=== PATIENT | female | born 1955 | race American Indian/Alaskan Native ===

== ENCOUNTER 2016-09-02 11:49 | Emergency (ER) | payer BC, OTHER ==
[2016-09-02 12:02] VITALS: BP 141/94
--- NOTE | 2016-09-02 12:59 | Emergency Department Report ---
Minor Respiratory - HPI Chief Complaint: Upper Respiratory Infection Stated Complaint: BACK ACHE/SNEEZING/COUGHING/ Time Seen by Provider: 09/02/16 12:41 ED Review of Systems ROS: Stated complaint: BACK ACHE/SNEEZING/COUGHING/ Other details as noted in HPI Patient relates she is been sick with fever and cough for the past 6 days. Denies photophobia, neck pain, shortness of breath. Constitutional: chills, fever, malaise Eyes: denies: eye discharge, vision change ENT: congestion. denies: throat pain Respiratory: cough. denies: shortness of breath, wheezing Cardiovascular: denies: chest pain, palpitations Gastrointestinal: denies: abdominal pain, nausea, vomiting Musculoskeletal: myalgia Skin: as per HPI Neurological: headache. denies: abnormal gait, vertigo ED Past Medical Hx - Past Medical History Hx Hypertension: Yes Additional medical history: thyroid CA-2006 - Surgical History Additional Surgical History: thyroidectomy,right ovary removed - Social History Smoking Status: Unknown if ever smoked Substance Use Type: None - Medications Home Medications: Home Medications Medication Instructions Recorded Confirmed Last Taken Type Acetamin/Codeine 120-12Mg/5 ml 5 ml PO TID PRN #120 oz 09/02/16 Unknown Rx [Tylenol/Codeine] Azithromycin [Zithromax Z-PAYAM] 250 mg PO DAILY #1 09/02/16 Unknown Rx predniSONE [Deltasone] 50 mg PO QDAY #5 tab 09/02/16 Unknown Rx Minor Respiratory Exam - Exam General: Vital signs noted. No distress. Alert and acting appropriately. HEENT: No Pharyngeal Erythema, No Pharyngeal Exudates, No Moist Mucous Membranes , No Rhinorrhea, No Conjuctival Injection, No Frontal Tenderness, No Maxillary Tenderness Ear: Neither TM Bulge, Neither TM Erythema, Neither EAC Pain, Neither EAC Discharge Neck: No Adenopathy, No Supple Lungs: Yes Good Air Exchange, Yes Cough (dry), No Wheezes, No Ronchi, No Stridor , No Labored Respirations, No Retractions, No Use of Accessory Muscles, No Other Abnormal Lung Sounds Abdomen: No Tenderness, No Peritoneal Signs Skin: No Rash, No Edema Neurologic: Alert and oriented, no deficits. Musculoskeletal: Unremarkable. ED Course Vital Signs 09/02/16 11:58 Temperature 99.8 F H Pulse Rate 100 H Respiratory 20 Rate Blood Pressure 141/94 O2 Sat by Pulse 100 Oximetry Critical care attestation.: If time is entered above; I have spent that time in minutes in the direct care of this critically ill patient, excluding procedure time. ED Disposition Clinical Impression: Flu-like symptoms, URI (upper respiratory infection) Disposition: DISCHARGED TO HOME OR SELFCARE Is pt being admited?: No Does the pt Need Aspirin: No Condition: Stable Instructions: Upper Respiratory Infection in Children (ED) Prescriptions: Acetamin/Codeine 120-12Mg/5 ml [Tylenol/Codeine] 5 ml PO TID PRN #120 oz PRN Reason: Pain Azithromycin [Zithromax Z-PAYAM] 250 mg PO DAILY #1 predniSONE [Deltasone] 50 mg PO QDAY #5 tab Referrals: PRIMARY CARE, [Primary Care Provider] - 3-5 Days
--- NOTE | 2016-09-02 13:33 | XRay Report ---
AP CHEST: HISTORY: Fever AP view of the chest demonstrates a normal mediastinal and cardiac contour with clear lungs and normal bony and soft tissue structures. IMPRESSION: Unremarkable AP chest.
== END 2016-09-02 14:05 | disposition home or self-care (01) ==
LOC: ED 11:49
DX: J11.1 Influenza due to unidentified influenza virus with other respiratory manifestations (principal); J06.9 Acute upper respiratory infection, unspecified; I10 Essential (primary) hypertension
CPT/HCPCS: 71010; 99283

== ENCOUNTER 2017-12-02 18:07 | Emergency (ER) | payer SELFPAY ==
[2017-12-02] MEDS ORDERED: MOTRIN PO ONE (22:13)
--- NOTE | 2017-12-02 22:18 | Emergency Department Report ---
- General Chief Complaint: Upper Respiratory Infection Stated Complaint: FLU LIKE SYMPTOMS Time Seen by Provider: 12/02/17 22:13 Source: patient Mode of arrival: Ambulatory Limitations: No Limitations - History of Present Illness Initial Comments: 62-year-old -[place] female comes in complaining of sinus pressure, congestion, headache, runny nose 6 days. She reports dry cough started today and chills. She denies any nausea no vomiting no diarrhea. Patient reports she 's been taking Claritin without much relief. She reports her headache is located frontal in the back of her neck. She reports that the headache is dull and achy inconsistent. Patient has a past medical history of hypertension she is currently taken amlodipine, history of hypothyroidism currently taking levothyroxine 125 g daily. MD Complaint: rhinorrhea, nasal congestion, sinus pain, other (headache) -: days(s) (6) Severity scale (0 -10): 8 Quality: dull, aching Consistency: constant Improves With: nothing Worsens With: nothing Associated Symptoms: chills, headache, rhinorrhea, nasal congestion, cough (dry cough started today) Treatments Prior to Arrival: Acetaminophen, other (Claritin) - Related Data Previous Rx's Medication Instructions Recorded Last Taken Type Acetamin/Codeine 120-12Mg/5 ml 5 ml PO TID PRN #120 oz 09/02/16 Unknown Rx [Tylenol/Codeine] Azithromycin [Zithromax Z-PAYAM] 250 mg PO DAILY #1 09/02/16 Unknown Rx predniSONE [Deltasone] 50 mg PO QDAY #5 tab 09/02/16 Unknown Rx Dexchlorpheniram/Phenylephrine 1 each PO Q6H #20 tab 12/02/17 Unknown Rx [Rymed Tablet] Ibuprofen [Motrin 600 MG tab] 600 mg PO Q8H PRN #15 tablet 12/02/17 Unknown Rx Sulfamethoxazole/Trimethoprim 1 each PO BID #20 tablet 12/02/17 Unknown Rx [Bactrim DS TAB] Allergies Allergy/AdvReac Type Severity Reaction Status Date / Time Penicillins Allergy Nausea Verified 12/02/17 18:11 ED Review of Systems ROS: Stated complaint: FLU LIKE SYMPTOMS Other details as noted in HPI Constitutional: chills Eyes: denies: eye pain, eye discharge, vision change ENT: congestion (nasal,), other (rhinorrhea) Respiratory: cough (dry cough started today) Cardiovascular: denies: chest pain, palpitations Endocrine: no symptoms reported Gastrointestinal: nausea Genitourinary: denies: urgency, dysuria, discharge Musculoskeletal: denies: back pain, joint swelling, arthralgia Skin: denies: rash, lesions Neurological: headache (frontal constant dull and achy) Psychiatric: denies: anxiety, depression Hematological/Lymphatic: denies: easy bleeding, easy bruising ED Past Medical Hx - Past Medical History Hx Hypertension: Yes Additional medical history: thyroid CA-2006 - Surgical History Additional Surgical History: thyroidectomy,right ovary removed - Social History Smoking Status: Never Smoker Substance Use Type: None - Medications Home Medications: Home Medications Medication Instructions Recorded Confirmed Last Taken Type Acetamin/Codeine 120-12Mg/5 ml 5 ml PO TID PRN #120 oz 09/02/16 Unknown Rx [Tylenol/Codeine] Azithromycin [Zithromax Z-PAYAM] 250 mg PO DAILY #1 09/02/16 Unknown Rx predniSONE [Deltasone] 50 mg PO QDAY #5 tab 09/02/16 Unknown Rx Dexchlorpheniram/Phenylephrine 1 each PO Q6H #20 tab 12/02/17 Unknown Rx [Rymed Tablet] Ibuprofen [Motrin 600 MG tab] 600 mg PO Q8H PRN #15 tablet 12/02/17 Unknown Rx Sulfamethoxazole/Trimethoprim 1 each PO BID #20 tablet 12/02/17 Unknown Rx [Bactrim DS TAB] ED Physical Exam - General Limitations: No Limitations General appearance: alert, in no apparent distress - Head Head exam: Present: atraumatic, normocephalic, other (maxillary's sinus tenderness, and frontal tenderness) - ENT ENT exam: Present: mucous membranes moist, other (nasal turbinate erythematous edematous) - Neck Neck exam: Present: normal inspection, tenderness (posterior lateral), full ROM. Absent: lymphadenopathy - Respiratory Respiratory exam: Present: normal lung sounds bilaterally. Absent: respiratory distress - Cardiovascular Cardiovascular Exam: Present: regular rate, normal rhythm. Absent: systolic murmur, diastolic murmur, rubs, gallop - GI/Abdominal GI/Abdominal exam: Present: soft, normal bowel sounds - Extremities Exam Extremities exam: Present: normal inspection - Back Exam Back exam: Present: normal inspection - Neurological Exam Neurological exam: Present: alert, oriented X3 - Psychiatric Psychiatric exam: Present: normal affect, normal mood - Skin Skin exam: Present: warm, dry, intact, normal color. Absent: rash ED Course Vital Signs 12/02/17 18:11 Temperature 99.2 F Pulse Rate 82 Respiratory 16 Rate Blood Pressure 174/100 O2 Sat by Pulse 99 Oximetry ED Medical Decision Making - Medical Decision Making Patient's been evaluated with this provider fast track. I discussed the patient sounds like sinusitis. Discussed the patient will place her on antibiotics and antihistamine with decongestant and pain medication. Discuss with patient her elevated blood pressure. Patient reports that her blood pressure has been doing quite well running 118/70. I discussed the patient she will need to continue with her blood pressure and monitoring while taking medication. Patient verbalized understanding Critical care attestation.: If time is entered above; I have spent that time in minutes in the direct care of this critically ill patient, excluding procedure time. ED Disposition Clinical Impression: Sinusitis chronic, frontal Disposition: DC-01 TO HOME OR SELFCARE Is pt being admited?: No Does the pt Need Aspirin: No Condition: Stable Instructions: Sinusitis (ED) Additional Instructions: Take medication as prescribed. Please be sure to continue with her blood pressure medication. If symptoms persist or gets worse please follow-up with her primary care provider. Prescriptions: Dexchlorpheniram/Phenylephrine [Rymed Tablet] 1 each PO Q6H #20 tab Ibuprofen [Motrin 600 MG tab] 600 mg PO Q8H PRN #15 tablet PRN Reason: Pain Sulfamethoxazole/Trimethoprim [Bactrim DS TAB] 1 each PO BID #20 tablet Referrals: PRIMARY CARE, [Primary Care Provider] - 3-5 Days Forms: Work/School Release Form(ED)
[2017-12-02 22:40] VITALS: BP 151/94
== END 2017-12-02 22:38 | disposition home or self-care (01) ==
LOC: ED 18:07
DX: J32.9 Chronic sinusitis, unspecified (principal); I10 Essential (primary) hypertension
CPT/HCPCS: 99282

== ENCOUNTER 2019-03-27 07:09 | Emergency (ER) | payer OTHER ==
--- NOTE | 2019-03-27 08:00 | Emergency Department Report ---
HPI - General Chief Complaint: Syncope Time Seen by Provider: 03/27/19 07:40 - HPI HPI: 63-year-old -[place] female presents to the emergency department from home with complaint of a headache and neck pain after falling in her kitchen just prior to arrival. Patient says that she slipped and hit the right side of her head on the corner of the wall. She then fell to the floor and says that she "twisted my neck." Patient says that she may have blacked out but "I forced myself to wake up." She has a history of some hypothyroidism status post thyroidectomy from thyroid cancer, as well as a history of hypertension. She did not take anything for her symptoms prior to arrival. She denies any back pain, chest pain, abdominal pain, pelvic or extremity pain. ED Past Medical Hx - Past Medical History Previous Medical History?: Yes Hx Hypertension: Yes Additional medical history: thyroid CA-2005 - Surgical History Past Surgical History?: Yes Additional Surgical History: thyroidectomy,right ovary removed - Social History Smoking Status: Never Smoker Substance Use Type: None - Medications Home Medications: Home Medications Medication Instructions Recorded Confirmed Last Taken Type Atorvastatin (Nf) [Lipitor (Nf)] 10 mg PO QHS 03/27/19 03/27/19 03/26/19 History Cholecalciferol (Vitamin D3) 50,000 unit PO QWEEK 03/27/19 03/27/19 03/23/19 History [Vitamin D3 50,000UNIT CAP] Levothyroxine [Synthroid] 125 mcg PO QAM 03/27/19 03/27/19 03/26/19 History amLODIPine [Norvasc] 5 mg PO DAILY 03/27/19 03/27/19 03/26/19 History amLODIPine [Norvasc] 10 mg PO DAILY 03/27/19 03/27/19 03/26/19 History ED Review of Systems ROS: Stated complaint: FALL HEAD LAC Other details as noted in HPI Comment: All other systems reviewed and negative Constitutional: denies: chills, fever Eyes: denies: eye pain, vision change ENT: denies: ear pain, throat pain Respiratory: denies: cough, shortness of breath Cardiovascular: syncope. denies: chest pain Gastrointestinal: denies: abdominal pain, vomiting Genitourinary: denies: dysuria, discharge Musculoskeletal: other (neck pain). denies: back pain Skin: denies: rash, lesions Neurological: headache. denies: numbness, paresthesias Physical Exam - Physical Exam Vital Signs: Vital Signs 03/27/19 03/27/19 07:34 07:56 Temperature 98.1 F Pulse Rate 91 H 94 H Respiratory 16 16 Rate Blood Pressure 152/95 Blood Pressure 159/93 [Left] O2 Sat by Pulse 100 100 Oximetry Physical Exam: GENERAL: The patient is well-developed well-nourished. HENT: Normocephalic. There is a small non-expanding hematoma to the right superior forehead and scalp. Patient has moist mucous membranes. EYES: Extraocular motions are intact. Pupils equal reactive to light bilaterally. No nystagmus. NECK: Supple. Trachea is midline. There is both midline and bilateral paraspinal tenderness to palpation but no step-off or deformity. CHEST/LUNGS: Clear to auscultation. There is no respiratory distress noted. HEART/CARDIOVASCULAR: Regular. There is no tachycardia. There is no murmur. ABDOMEN: Abdomen is soft, nontender. Patient has normal bowel sounds. There is no abdominal distention. SKIN: Skin is warm and dry. NEURO: The patient is awake, alert, and oriented. The patient is cooperative. The patient has no focal neurologic deficits. Normal speech. Cranial nerves II through XII grossly intact. MUSCULOSKELETAL: There is no tenderness or deformity. There is no limitation range of motion. There is no evidence of acute injury. Muscle strength 5 out of 5 upper and lower extremities bilaterally. ED Course Vital Signs 03/27/19 03/27/19 07:34 07:56 Temperature 98.1 F Pulse Rate 91 H 94 H Respiratory 16 16 Rate Blood Pressure 152/95 Blood Pressure 159/93 [Left] O2 Sat by Pulse 100 100 Oximetry ED Medical Decision Making - Lab Data Result diagrams: 03/27/19 07:53 03/27/19 07:53 - EKG Data -: EKG Interpreted by Me EKG shows normal: sinus rhythm, axis, intervals (prolonged NV interval), QRS complexes (q waves to the septal leads), ST-T waves Rate: normal - EKG Data When compared to previous EKG there are: previous EKG unavailable Interpretation: other (sinus, prolonged NV interval, Q waves to the septal leads) - Radiology Data Radiology results: report reviewed CT head without contrast Clinical history: Headache, trauma, syncope FINDINGS: No previous exams available for comparison. The brain appears to demonstrate appropriate attenuation for age. There is no clear CT evidence of acute intracranial hemorrhage or significant mass effect. Ventricular system is appropriate in size and configuration. The visualized paranasal sinuses are clear. All CT scans at this location are performed using the CT dose reduction for ALARA by means of automated exposure control. IMPRESSION: There is no CT evidence of acute intracranial process. Signer Name: Wing Powell MD Signed: 03/27/2019 9:33 AM Workstation Name: [id number] CT cervical spine without contrast Clinical history: Neck pain, trauma FINDINGS: No previous exams available for comparison. There is no clear CT evidence of acute fracture involving the cervical spine at. There are multilevel degenerative disc and endplate changes. There is right-sided osteophytic formation at C3-4 which effaces the right ventral subarachnoid space. There is mild right neural foraminal narrowing. Is also a right paracentral osteophyte at C4 L5 which effaces the subarachnoid space at. There is mild to moderate left neural foraminal narrowing. There is also mild to moderate foraminal narrowing bilaterally at C5-6 and on the right at C6-7. No prevertebral soft tissue fluid collections are identified. All CT scans at this location are performed using the CT dose reduction for ALARA by means of automated exposure control. IMPRESSION: There is no CT evidence of acute fracture involving the cervical spine. There are multilevel degenerative changes as detailed above. - Medical Decision Making This patient presents to the emergency department after she slipped in her kitchen, fell and hit her head on the corner of the wall and had a questionable syncopal versus near syncopal episode after the injury. She presents with a non-expanding hematoma to the right side of the forehead/scalp and some neck pain. On examination the patient does not have any focal, motor or sensory deficits. A CT scan of the head was done that does not show any bleed, shift, mass, ischemia, skull fracture, or any other acute process. CT of the cervical spine also was done that does not show any fracture, subluxation or any acute process. Labs have been unremarkable except for very mild hypokalemia with potassium of 3.4 that was replaced with potassium chloride. Patient was given some pain medication for her discomfort. She was reevaluated multiple times over multiple hours and says she is feeling greatly improved. She was seen ambulatory in the emergency department both appears and feels stable. She'll be discharged home to follow up with her primary care physician and she has been given a referral for a neurosurgeon has continued neck pain. Otherwise, the patient has been instructed to return to the emergency Department with any worsening of her symptoms or any acute distress. - Differential Diagnosis contusion, concussion, skull fracture, subarachnoid, cervical fracture, cer Critical Care Time: No Critical care attestation.: If time is entered above; I have spent that time in minutes in the direct care of this critically ill patient, excluding procedure time. ED Disposition Clinical Impression: Neck pain Fall Qualifiers: Encounter type: initial encounter Qualified Code(s): W19.XXXA - Unspecified fall, initial encounter Hematoma of scalp Qualifiers: Encounter type: initial encounter Qualified Code(s): S00.03XA - Contusion of scalp, initial encounter Headache Qualifiers: Headache type: unspecified Headache chronicity pattern: unspecified pattern Intractability: not intractable Qualified Code(s): R51 - Headache Disposition: DC-01 TO HOME OR SELFCARE Is pt being admited?: No Condition: Stable Instructions: Minor Head Injury (ED), Fall Prevention (ED) Additional Instructions: Please follow-up with your primary care physician in the next few days. I have also given you a referral for a local neurosurgeon, Dr. Farias, to follow up regarding her neck pain. Return to the emergency Department with any worsening of your symptoms or any acute distress. Referrals: LO SKY MD [Primary Care Provider] - 2-3 Days ROHINI FARIAS MD [Staff Physician] - 2-3 Days Forms: Accompanied Note, Work/School Release Form(ED) Time of Disposition: 11:41
[2019-03-27 08:14] LABS: Basophils % (Auto) 0.4 % (0.0-1.8); Eosinophils # (Auto) 0.1 K/mm3 (0.0-0.4); Eosinophils % (Auto) 1.3 % (0.0-4.3); Hematocrit 40.9 % (30.3-42.9); Hemoglobin 13.7 gm/dl (10.1-14.3); Lymphocytes # (Auto) 2.5 K/mm3 (1.2-5.4); Lymphocytes % (Auto) 36.5 % (13.4-35.0); Mean Corpuscular HGB Conc 34 % (30-34); Mean Corpuscular Volume 90 fl (79-97); Monocytes # (Auto) 0.4 K/mm3 (0.0-0.8); Monocytes % (Auto) 5.2 % (0.0-7.3); Platelet Count 331 K/mm3 (140-440); Red Blood Count 4.54 M/mm3 (3.65-5.03); Red Cell Distribution Width 13.7 % (13.2-15.2)
[2019-03-27 08:31] LABS: BUN/Creatinine Ratio 16; Blood Urea Nitrogen 13 mg/dL (7-17); Calcium 10.5 mg/dL (8.4-10.2); Hemolysis Index 2
--- NOTE | 2019-03-27 09:38 | Cat Scan Report ---
CT head without contrast Clinical history: Headache, trauma, syncope FINDINGS: No previous exams available for comparison. The brain appears to demonstrate appropriate at tenuation for age. There is no clear CT evidence of acute intracranial hemorrhage or significant mass effect. Ventricular system is appropriate in size and configuration. The visualized paranasal sinuse s are clear. All CT scans at this location are performed using the CT dose reduction for ALARA by prashant ns of automated exposure control. IMPRESSION: There is no CT evidence of acute intracranial process. Signer Name: Wing Powell MD Signed: 03/27/2019 9:33 AM Workstation Name: [email or web address]
--- NOTE | 2019-03-27 09:47 | Cat Scan Report ---
CT cervical spine without contrast Clinical history: Neck pain, trauma FINDINGS: No previous exams available for comparison. There is no clear CT evidence of acute fracture involving the cervical spine at. There are multilevel degenerative disc and endplate changes. There is right-sided osteophytic formation at C3-4 which effaces the right ventral subarachnoid space. Ther e is mild right neural foraminal narrowing. Is also a right paracentral osteophyte at C4 L5 which effaces the subarachnoid space at. There is mil d to moderate left neural foraminal narrowing. There is also mild to moderate foraminal narrowing florecita aterally at C5-6 and on the right at C6-7. No prevertebral soft tissue fluid collections are identifi ed. All CT scans at this location are performed using the CT dose reduction for ALARA by means of aut omated exposure control. IMPRESSION: There is no CT evidence of acute fracture involving the cervical spine. There are multilevel degenerative changes as detailed above. Signer Name: Wing Powell MD Signed: 03/27/2019 9:43 AM Workstation Name: [id number]
[2019-03-27] MEDS ORDERED: K-DUR PO ONE (11:04)
[2019-03-27 12:15] VITALS: BP 130/82
== END 2019-03-27 12:15 | disposition home or self-care (01) ==
LOC: ED 07:09
DX: S00.03XA Contusion of scalp, initial encounter (principal); M54.2 Cervicalgia; I10 Essential (primary) hypertension; E89.0 Postprocedural hypothyroidism; Z88.0 Allergy status to penicillin; Z79.899 Other long term (current) drug therapy; W01.198A Fall on same level from slipping, tripping and stumbling with subsequent striking against other object, initial encounter; Y93.89 Activity, other specified; Y92.090 Kitchen in other non-institutional residence as the place of occurrence of the external cause; Y99.8 Other external cause status
CPT/HCPCS: 36415; 70450; 72125; 80048; 82962; 84439; 84443; 85025; 93005; 93010; 99284